=== PATIENT | female | born 1985 | race African-American/Black ===

== ENCOUNTER 2020-06-04 10:48 | Emergency (ER) | payer MEDICAID ==
[~2020-06-04] VITALS: Ht 177.8 cm; Wt 100.0 kg
[2020-06-04] MEDS ORDERED: ONDANSETRON HCL 4MG/2ML INJ IV STA (11:16)
[2020-06-04] MEDS ORDERED: SODIUM CHLORIDE 0.9% 1,000 ML IV ONE (11:16)
[2020-06-04] MEDS ORDERED: KETOROLAC 30MG/ML VIAL IV STA (11:16)
[2020-06-04] MEDS ORDERED: METOCLOPRAMIDE HCL 10MG/2ML VIAL IV ONE (11:30)
[2020-06-04 11:36] LABS: BASOPHILS % 0.4 % (0.0-2.0); CHLORIDE 109 mEq/L (98-107); EOSINOPHILS % 1.3 % (0.0-5.0); HEMATOCRIT. 43.1 % (36.0-48.0); HEMOGLOBIN. 15.2 g/dL (12.0-16.0); LYMPHOCYTES % 18.5 % (20.0-50.0); MEAN PLATELET VOLUME 7.5 fl (7.4-10.4); MONOCYTES % 6.3 % (2.0-8.0); NEUTROPHILS % 73.5 % (40.0-76.0); PLATELET 249 x1000/uL (130-400); RED BLOOD CELL COUNT 4.35 mill/uL (4.2-5.4); RED CELL DISTRIBUTION WIDTH 13.5 % (11.6-14.6)
[2020-06-04 11:40] LABS: PROTHROMBIN TIME 10.7 sec (9.6-11.0)
[2020-06-04 11:45] LABS: HCG SCREEN NEGATIVE
[2020-06-04] MEDS ORDERED: MORPHINE SULFATE 4 MG/ML CPJ (NOT FOR IM USE) IV ONE (12:00)
[2020-06-04 13:13] LABS: CLARITY URINE CLOUDY (CLEAR); COLOR URINE YELLOW (YELLOW)
[2020-06-04 13:14] LABS: KETONES URINE TRACE (NEGATIVE); OCCULT BLOOD URINE 3+ (NEGATIVE); PROTEIN URINE 2+ (NEGATIVE); SPECIFIC GRAVITY URINE 1.032 (1.005-1.030)
[2020-06-04 13:15] LABS: LEUKOCYTE ESTERASE URINE 1+ (NEGATIVE); NITRITE URINE NEGATIVE (NEGATIVE)
[2020-06-04 13:23] VITALS: BP 135/85
== END 2020-06-04 13:20 | disposition home or self-care (01) ==
LOC: ER 11:01
DX: R10.13 Epigastric pain (principal); R11.2 Nausea with vomiting, unspecified; R03.0 Elevated blood-pressure reading, without diagnosis of hypertension
CPT/HCPCS: 36415; 80053; 81003; 81025; 83690; 84703; 85025; 85610; 96361; 96374; 96375; 99284; J1885; J2270; J2765; J7030

== ENCOUNTER 2022-05-12 04:12 | Emergency (ER) | payer MEDICAID, OTHER ==
[~2022-05-12] VITALS: Ht 165.1 cm; Wt 90.7 kg
[2022-05-12] MEDS ORDERED: KETOROLAC 30MG/ML VIAL IV STA (05:43)
[2022-05-12 06:20] LABS: BASOPHILS % 0.6 % (0.0-2.0); EOSINOPHILS % 5.2 % (0.0-5.0); HEMATOCRIT. 38.7 % (36.0-48.0); HEMOGLOBIN. 13.6 g/dL (12.0-16.0); LYMPHOCYTES % 46.4 % (20.0-50.0); MEAN CORPUSCULAR HEMOGLOBIN 33.5 pg (28.0-32.0); MEAN CORPUSCULAR VOLUME 95.7 fL (81.0-99.0); MONOCYTES % 8.8 % (2.0-8.0); PLATELET 302 x1000/uL (130-400); RED BLOOD CELL COUNT 4.05 mill/uL (4.2-5.4); RED CELL DISTRIBUTION WIDTH 13.8 % (11.6-14.6)
[2022-05-12 06:32] LABS: CHLORIDE 111 mEq/L (98-107)
[2022-05-12] MEDS ORDERED: TOPUD PO (07:01)
[2022-05-12 08:17] VITALS: BP 128/76
== END 2022-05-12 08:17 | disposition home or self-care (01) ==
LOC: ER 04:12
DX: R07.89 Other chest pain (principal); J45.909 Unspecified asthma, uncomplicated
CPT/HCPCS: 36415; 71045; 80053; 81025; 83880; 84484; 85025; 93005; 96374; 99285; J1885